=== PATIENT | male | born 1955 | race Caucasian/White ===

== ENCOUNTER 2022-01-21 16:38 | Outpatient (CLI) | payer BC, SELFPAY ==
[2022-01-21 09:13] LABS: Chloride* 101 mmol/L (96-114)
[2022-01-21 09:14] LABS: Albumin* 4.4 g/dL (3.3-5.0); Potassium* 4.5 mmol/L (3.6-5.1); Sodium* 141 mmol/L (135-149)
[2022-01-21 09:17] LABS: Alanine Aminotransferase* 17 U/L (4-50); Alkaline Phosphatase* 83 U/L (40-150); Aspartate Amino Transferase* 22 U/L (12-35); Bilirubin Total* 0.5 mg/dL (0.1-1.5); Blood Urea Nitrogen* 18 mg/dL (7-30); Calcium* 9.3 mg/dL (8.4-10.6); Carbon Dioxide* 35 mmol/L (20-32); Cholesterol* 122 mg/dL (90-199); Creatinine* 0.9 mg/dL (0.5-1.5); Estimated Glomerular Filt Rate 95 ml/min; Glucose* 114 mg/dL (60-115); Total Protein* 6.7 g/dL (6.0-8.3); Triglycerides* 167 mg/dL (40-149)
[2022-01-21 09:18] LABS: HDL Cholesterol* 34 mg/dL (>=40); LDL Cholesterol Calculated 55 mg/dL (<100)
[2022-01-21 09:54] LABS: Microalbumin Creatinine Ratio 20 mg/g (0-30); Microalbumin Urine 3 mg/dL
== END 2022-01-21 16:39 | disposition home or self-care (01) ==
PROVIDERS: PCP Family Medicine; Visit Provider Family Medicine
DX: Z01.818 Encounter for other preprocedural examination (principal); E11.9 Type 2 diabetes mellitus without complications; E78.5 Hyperlipidemia, unspecified; I10 Essential (primary) hypertension
CPT/HCPCS: 80053; 80061; 82043; 82570

== ENCOUNTER 2022-04-03 21:33 | Emergency (ER) | payer BC, SELFPAY ==
[2022-04-03 21:37] VITALS: BP 141/74; PULSE 67; RESP 16; TEMP 36; O2SAT 97; BMI 27.5
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
== END 2022-04-03 22:38 | disposition home or self-care (01) ==
PROVIDERS: Emergency Provider Family Medicine; PCP Family Medicine
DX: S01.01XA Laceration without foreign body of scalp, initial encounter (principal); W22.8XXA Striking against or struck by other objects, initial encounter
CPT/HCPCS: 12001; 99283

== ENCOUNTER 2023-10-14 07:45 | Outpatient (CLI) | payer OTHER, SELFPAY | END 2023-10-14 07:46 | disposition home or self-care (01) | LOC: NFLDREF 10-17 11:36 | PROVIDERS: PCP Family Medicine; Referring Provider Family Medicine; Visit Provider Family Medicine | DX: E11.9 Type 2 diabetes mellitus without complications (principal); E78.5 Hyperlipidemia, unspecified; I10 Essential (primary) hypertension; Z12.5 Encounter for screening for malignant neoplasm of prostate | CPT/HCPCS: 80053; 80061; 82043; 82570; G0103 ==

== ENCOUNTER 2023-10-15 13:48 | Outpatient (CLI) | payer OTHER, SELFPAY | END 2023-10-15 13:49 | disposition home or self-care (01) | LOC: NFLDREF 10-16 09:20 | PROVIDERS: PCP Family Medicine; Referring Provider Family Medicine; Visit Provider Family Medicine | DX: Z00.00 Encounter for general adult medical examination without abnormal findings (principal); E11.9 Type 2 diabetes mellitus without complications; I10 Essential (primary) hypertension | CPT/HCPCS: 82043; 82570 ==

== ENCOUNTER 2023-12-21 16:44 | Emergency (ER) | payer OTHER, SELFPAY ==
[2023-12-21 17:09] VITALS: BP 141/75; PULSE 66; RESP 20; TEMP 36.3; O2SAT 96; BMI 27.9
--- NOTE | 2023-12-21 17:44 | CRLHL7_ITS ---
For Patients: As a result of the Cures Act, medical imaging exams and procedure reports are released immediately into your electronic medical record. You may view this report before your referring provider. If you have questions, please contact your health care provider. INDICATION: Cough TECHNIQUE: Two view chest radiograph COMPARISON: None. FINDINGS: Devices: None. Lung volumes are good. No focal or diffuse opacities. No pleural effusion. No pneumothorax. Heart size is normal. IMPRESSION: Lungs clear. No acute findings. Dictated by Toya Adam MD @ 12/21/2023 6:17:52 PM (Electronically Signed)
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
[2023-12-21 18:09] LABS: PCR FLU A Negative PCR FLU A (Negative); PCR FLU B Negative PCR FLU B (Negative); PCR RSV Negative PCR RSV (Negative); SARS PCR* Negative SARS-CoV-2 (Negative)
== END 2023-12-21 18:55 | disposition home or self-care (01) ==
PROVIDERS: Emergency Provider Family Medicine; PCP Family Medicine
DX: J32.9 Chronic sinusitis, unspecified (principal); R05.9 Cough, unspecified
CPT/HCPCS: 71046; 87631; 99284

== ENCOUNTER 2024-05-22 16:10 | Emergency (ER) | payer OTHER, SELFPAY ==
--- OUTSIDE RECORDS SUMMARY | 2024-05-22 16:13 | XMS_ITS | Continuity of Care Document ---
Author Organization [facility] Address [address] [place] [address] Phone Care Team Providers Care Stitch Wheeler Name Role Phone Denis Villanueva MD Unavailable Unavailable Allergies, Adverse Reactions, Alerts Substance Reaction Status Criticality No Known Allergies Active No Inform ation Medications Medication Instructions Dosage Effective Dates (start - stop) Status Comments MOTRIN IB (unknown strength) Not Available - Active ADVIL (unknown strength) Not Available - Active ROSUVASTATIN CALCIUM (unknown strength) Not Available - Active METOPROLOL TARTRATE (unknown strength) Not Available - Active METFORMIN HCL (unknown strength) Not Available - Active ASPIRIN (unknown strength) Not Available - Active Procedures Procedure Date Office/Outpatient Visit,Est, Mod 2022 Office/Outpatient Visit,Est, Mod 2021 Office/Outpatient Visit,New, [place] 2020 Advance Directives Directive Yes / No Effective Date File Name No Information Encounters Encounter Description Practice Location Reason(s) For Visit Diagnoses Date Provider Providers Copied on Encounter Office/Outpat ient Visit,Est, Mod [facility], [address], [place], [place], [id number], [place] tel:[phone] [facility] [place] Spinal stenosis, cervical region 3 Rich Barrios. [facility], [address] [place] [address], [facility] [address], [place], [place], [id number] , [place]. tel:[phone] Referring Provider: Joey Bedoya, [facility] [address], [address]. tel:[phone] Office/Outpat ient Visit,Est, Mod [facility], [address], [place] [id number], [place] tel:[phone] [facility] Other spondylosis, cervical regionSpinal stenosis, cervical region Sep- 2 Richjacquelyn Barrios. [facility], [address], [address], [place], [place], [id number] , [place]. tel:[phone] Referring Provider: Joey Bedoya, [facility] [address] [place], [address]. tel:[phone] Office/Outpat ient Visit,New, Mod [facility], [address], [place], [id number], [place] tel:[phone] [facility] Other spondylosis, cervical regionSpinal stenosis, cervical regionSprain of ligaments of cervical spine, initial encounter 1 Rich Ruanoothy. [facility], [address] [place] [address], [address], [place], [place], [id number] , [place]. tel:[phone] Referring Provider: Joey Bedoya, [facility] [address] [place], [address]. tel:[phone] Family History Family Member Type Diagnosis Age At Onset No Information Payers Payer name Insurance type Covered libertarian ID Authorjaviera evelyne(s) Medicare MB [id number] Medical [facility] [id number] Social History Type Description Quantity Date Captured Comments Alcohol Use Details Unknown Caffeine Use Details Unknown Tobacco Use Status Occasional cigarette smoker Smoking Status Light tobacco smoker Smoking Tobacco Use Details Cigarette: No Details Available Cigarette: 3 Cigarettes per day Sex Male Vital Signs Date / Time: Height Weight BMI Pulse Rate Blood Pressure Temperature Respiratory Rate Body Surface Area Head Circumference Head Circ. Percentile Wt./Herrera. Percentile BMI percentile Pulse Ox Inhaled Ox 3:12 PM 71.50 in 94.347 kg (208.00 lbs) 28.6 1 kg/m eter (2) Chief Complaint And Reason For Visit No Information Reason For Referral Reason For Referral No Information Plan Of Treatment Date Type Action Status Future Order: Radiology Order Tr ansforaminal Ocrmdtt-Discejdy-Itivjabryihlkm (TRANSCERVNONPART), Ordered on: Ordered History Of Present Illness Encounter Date Complaint History Of Prese nt Illness No Information Functional Status Date Functional Assessmen t No Information Instructions Date Instruction Additional Infor mation No Information Assessments Type Assessment Date assessment Spinal stenosis, cervical region Patient Care Teams Name Effective Dates (start - stop) Status Members No Information
--- OUTSIDE RECORDS SUMMARY | 2024-05-22 16:13 | XMS_ITS | Clinical Summary ---
Author Organization [employer] [facility] [employer] Address [facility] [place] [address] Care Team Providers Care Csw Name Role Phone Pcp, No Primary Care Provider Unavailabl e Allergies No known active allergies Medications aspirin (ECOTRIN) 81 mg enteric coated tablet Take 1 tablet by mouth once daily with a meal. 0 04/19/19 15 Active omeprazole (PRILOSEC) 20 mg Delayed-Release capsule Take 1 capsule by mouth once daily before a meal. 0 03/24/19 16 Active naproxen (NAPROSYN) 500 mg tabletIndications: Osteoarthritis of both knees, unspecified osteoarthritis type TAKE 1 TABLET BY MOUTH TWICE DAILY WITH MEALS 180 tablet 2 06/30/19 16 Active ACCU-CHEK SMARTVIEW TEST STRIP stripIndications:T ype 2 diabetes mellitus without complication (HC) TEST THREE TIMES DAILY DIRECTED 300 Strip 3 10/24/19 16 Active ACCU-CHEK FASTCLIXIndication s:Type 2 diabetes mellitus without complication (HC) TEST THREE TIMES DAILY 300 Each 3 11/18/19 16 Active metFORMIN (GLUCOPHAGE) 1,000 mg tabletIndications: Type 2 diabetes mellitus without complication (HC) TAKE 1 TABLET BY MOUTH TWICE DAILY WITH MEALS 60 tablet 01/21/20 16 Active metoprolol tartrate (LOPRESSOR) 25 mg tabletIndications: Coronary artery disease due to lipid rich plaque Take 1 tablet by mouth 2 times daily. Please make appointment for follow up 60 tablet 06/13/19 17 Active lancets TEST THREE TIMES DAILY 11/18/19 16 Active inhalational spacing deviceIndications: Cough For home use. 1 Device 12/24/19 20 Active rosuvastatin (CRESTOR) 10 mg tablet Take 10 mg by mouth at bedtime. 01/21/20 21 Active methylPREDNISolone (Medrol, Compa,) 4 mg tabletIndications: Sinus congestion Take by mouth as instructed per packaging. 21 Tablet 06/02/19 22 Active Active Problems Problem Noted Date Diagnosed Date Type 2 diabetes mellitus, wi thout long-term current use of insulin 10/09/2018 CAD (coronary artery disease) 04/22/2014 Exertional angina 04/22/2014 Obesity 04/22/2014 Dyslipidemia 04/22/2014 Hypertension 04/22/2014 Family history of premature CAD 04/22/2014 Resolved Problems Problem Noted Date Diagnosed Date Resolved Date Tobacco abuse 04/22/2014 06/15/2014 Immunizations Immunization Administration Dates Next Due Influenza RIV4 (Age 18+ Years) PRESERV FREE 12/02,12/09/2018 Influenza, IIV4 11/16/2019,08/06/2018,01/01/2017 Pneumococcal Poly,23-Valent (Pneumovax) 10/21/19 19 Td (Age >=7 Years) 04/26/1997 Tdap 04/27/2014,01/01/2012 Family History Medical History Relation Name Comments Heart Disease Brother Cancer-breast Mother Relation Name Status Comments Brother Father Mother Social History Tobacco Use Types Packs/Day Years Used Date Smoking Tobacco: Light Smoker Cigarettes 0.5 30 Started: 985; Last attempted to quit: 04/20/2014 Smokeless Tobacco: Never Tobacco Cessation:Ready to Q uit: No; Counseling Given: Yes Alcohol Use Standard Drinks/Week Comments No 0 (1 standard drink = 0.6 oz pur e alcohol) Social Connections Answer Date Recorded Frequency of Communication with Friends and Fami ly Not on file 05/15/2021 Sex and Gender Information Value Date Recorded Sex Assigned at Not on file Legal Sex Male 6:29 AM GO GO DANCER Gender Identity Not on file Sexual Orientation Not on file Obstetrics History Last Filed Vital Signs Vital Sign Reading Time Taken Comments Blood Pressure 136/76 06/01/2021 10:59 AM CDT Pulse 54 06/01/2021 10:57 AM CDT Temperature 36.6 C (97.9 F) 05/15/2021 3:07 PM CDT Respiratory Rate 14 12/24/2019 6:18 PM CDT Oxygen Saturation 98% 06/01/2021 10:57 AM CDT Inhaled Oxygen Concentration - - Weight 93.9 kg (207 lb) 05/15/2021 3:07 PM CDT Height 180.3 cm (5' 11) 05/15/2021 3:07 PM CDT Body Mass Index 28.87 05/15/2021 3:07 PM CDT Plan of Treatment Health Maintenance Due Date Last Done Comments Hepatitis C screening for ag e 18-79 06/06/1975 Colonoscopy through age 75 2002 Zoster (shingles) series for age 50+ (1 of 2) 06/06/2007 Depression screening for age 12+ 03/24/2016 03/24/19 16 RSV vaccine for adults or (1 - Risk 60-74 years 1-dose series) 2017 Pneumococcal series for age 50+ (2 of 2 - PCV) 10/21/2019 10/20/2018 Lipids for age 45-75 01/11/2020 01/10/2015, 04/19/19 15 BMI (ht and wt on same day) for age 18+ 05/15/2022 05/15/2021, 05/03/2015, 04/20/2015, Additional history exists COVID-19 vaccine series ( season) 2023 02/04/2021, 06/16/2020, 05/19/2020 Influenza Vaccine (#1) 2023 , 11/16/2019, 12/09/2018, Additional history exists Tetanus booster 04/27/2024 04/27/2014, 12/03, 04/26/1997 Tdap Completed 04/27/2014, 01/01/2012 Procedures Procedure Name Priority Date/Time Associated Diagnosis Comments LIPID PANEL W REFLEX MEASURED LDL Routine 01/10/2015 7:09 AM GO GO DANCER Coronary artery disease due to lipid rich plaque from Last 3 Months or Most Recently Relevant to Health Maintenance Results * (ABNORMAL) LIPID PANEL W REFLEX MEASURED LDL (01/10/2015 7:09 AM GO GO DANCER) CHOLESTEROL,TOTAL 179 100 - 199 mg/dL 01/10/2015 8:34 AM GO GO DANCER [facility] TRIGLYCERIDES 256(H) <150 mg/dL 01/10/2015 8:34 AM GO GO DANCER [facility] HDL CHOLESTEROL 37(L) >40 mg/dL 01/10/2015 8:34 AM GO GO DANCER [facility] NON-HDL CHOLESTEROL 142 <145 mg/dl 01/10/2015 8:34 AM GO GO DANCER [facility] CHOL/HDL RATIO 4.84(H) <4.50 01/10/2015 8:34 AM GO GO DANCER [facility] LDL CHOLESTEROL 91 <=130 mg/dL 01/10/2015 8:34 AM GO GO DANCER [facility] PATIENT STATUS FASTING 01/10/2015 8:34 AM GO GO DANCER [facility] Blood specimen (specimen) BLOOD SPECIMEN / Unknown Venipuncture / Unknown 01/10/2015 7:09 AM GO GO DANCER 01/10/2015 7:09 AM GO GO DANCER Ronaldo Souza MD CHEMISTRY Final Resu lt [facility] [address] [place] [address], from Last 3 Months or Most Recently Relevant to Health Maintenance Insurance [facility] Advance Directives * Full Code (Latest Code Status on File) Date Activated Date Inactivated Comments 04/21/2014 8:21 AM 04/22/2014 1:19 PM Care Teams Csw Relationship Specialty Start Date End Date Pcp, No . PCP - General 07/24/20
[2024-05-22 16:14] VITALS: BP 170/81; PULSE 65; RESP 16; TEMP -14.1; TEMP 6.6; O2SAT 99; BMI 28.8
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
--- NOTE | 2024-05-22 16:27 | CRLHL7_ITS ---
For Patients: As a result of the Century Cures Act, medical imaging exams and procedure reports are released immediately into your electronic medical record. You may view this report before your referring provider. If you have questions, please contact your health care provider. Indication: : Productive cough TECHNIQUE: Single-view chest. FINDINGS: The lungs are clear. The heart, mediastinum and pulmonary vessels are of normal size. There is no evidence of pleural disease. IMPRESSION: Negative chest. Dictated by Naima Shah MD @ 05/22/2024 4:54:19 PM (Electronically Signed)
--- OUTSIDE RECORDS SUMMARY | 2024-05-22 16:37 | XMS_ITS | Continuity of Care Document ---
Author Organization [facility] Address [address] [place] [address] Phone Care Team Providers Care Medical Appointment Clerk Name Role Phone Denis Villanueva MD Unavailable Unavailable Allergies, Adverse Reactions, Alerts Substance Reaction Status Criticality No Known Allergies Active No Inform ation Medications Medication Instructions Dosage Effective Dates (start - stop) Status Comments MOTRIN IB (unknown strength) Not Available - Active ASPIRIN (unknown strength) Not Available - Active METFORMIN HCL (unknown strength) Not Available - Active METOPROLOL TARTRATE (unknown strength) Not Available - Active ROSUVASTATIN CALCIUM (unknown strength) Not Available - Active ADVIL (unknown strength) Not Available - Active Procedures Procedure Date Office/Outpatient Visit,Est, Mod 2022 Office/Outpatient Visit,Est, Mod 2021 Office/Outpatient Visit,New, Mod 2020 Advance Directives Directive Yes / No Effective Date File Name No Information Encounters Encounter Description Practice Location Reason(s) For Visit Diagnoses Date Provider Providers Copied on Encounter Office/Outpat ient Visit,Est, Mod [facility], [address], [place], [place], [id number], [place] tel:[phone] [facility] [place] Spinal stenosis, cervical region 3 Rich Barrios. [facility], [address] [place] [address], [facility] [address], [place], [place], [id number] , [place]. tel:[phone] Referring Provider: Joey Bedoya, [facility] [address], [address]. tel:[phone] Office/Outpat ient Visit,Est, Mod [facility], [address], [place], [id number], [place] tel:[phone] [facility] Other spondylosis, cervical regionSpinal stenosis, cervical region Sep- 2 Richjacquelyn Barrios. [facility] [place], [address], [address], [place], [place], [id number] , [place]. tel:[phone] Referring Provider: Joey Bedoya, [facility] [address] [place], [address]. tel:[phone] Office/Outpat ient Visit,New, Mod [facility], [address], [place], [place], [id number], [place] tel:[phone] [facility] Other spondylosis, cervical regionSpinal stenosis, cervical regionSprain of ligaments of cervical spine, initial encounter 1 Rich Ruanoothy. [facility], [address] [place] [address], [address], [place], [place], [id number] , [place]. tel:[phone] Referring Provider: Joey Bedoya, [facility] [address] [place], [address]. tel:[phone] Family History Family Member Type Diagnosis Age At Onset No Information Payers Payer name Insurance type Covered democrat ID Authorjaviera evelyne(s) Medicare MB [id number] Medical [facility] [id number] Social History Type Description Quantity Date Captured [...] Status Future Order: Radiology Order Tr ansforaminal [id number] (TRANSCERVNONPART), Ordered on: Ordered History Of Present Illness Encounter Date Complaint History Of Prese nt Illness No Information Functional Status Date Functional Assessmen t No Information Instructions Date Instruction Additional Infor mation No Information Assessments Type Assessment Date assessment Spinal stenosis, cervical region Patient Care Teams Name Effective Dates (start - stop) Status Members No Information
--- OUTSIDE RECORDS SUMMARY | 2024-05-22 16:37 | XMS_ITS | Clinical Summary ---
Author Organization [employer] [facility] [employer] [facility] Address [facility] [place] [address] Care Team Providers Care Flat Spring Assembler Name Role Phone Pcp, No Primary Care [...] on file Legal Sex Male 6:29 AM U.S. REPRESENTATIVE Gender Identity Not on file Sexual Orientation [...] REFLEX MEASURED LDL Routine 01/10/2015 7:09 AM U.S. REPRESENTATIVE Coronary artery disease due to lipid rich plaque from Last 3 Months or Most Recently Relevant to Health Maintenance Results * (ABNORMAL) LIPID PANEL W REFLEX MEASURED LDL (01/10/2015 7:09 AM U.S. REPRESENTATIVE) CHOLESTEROL,TOTAL 179 100 - 199 mg/dL 01/10/2015 8:34 AM U.S. REPRESENTATIVE [facility] TRIGLYCERIDES 256(H) <150 mg/dL 01/10/2015 8:34 AM U.S. REPRESENTATIVE [facility] HDL CHOLESTEROL 37(L) >40 mg/dL 01/10/2015 8:34 AM U.S. REPRESENTATIVE [facility] NON-HDL CHOLESTEROL 142 <145 mg/dl 01/10/2015 8:34 AM U.S. REPRESENTATIVE [facility] CHOL/HDL RATIO 4.84(H) <4.50 01/10/2015 8:34 AM U.S. REPRESENTATIVE [facility] LDL CHOLESTEROL 91 <=130 mg/dL 01/10/2015 8:34 AM U.S. REPRESENTATIVE [facility] PATIENT STATUS FASTING 01/10/2015 8:34 AM U.S. REPRESENTATIVE [facility] Blood specimen (specimen) BLOOD SPECIMEN / Unknown Venipuncture / Unknown 01/10/2015 7:09 AM U.S. REPRESENTATIVE 01/10/2015 7:09 AM U.S. REPRESENTATIVE Ronaldo Souza MD CHEMISTRY Final Resu lt [facility] [address] [place] [address], from Last 3 Months or Most Recently Relevant to Health Maintenance Insurance [facility] Advance Directives * Full Code (Latest Code Status on File) Date Activated Date Inactivated Comments 04/21/2014 8:21 AM 04/22/2014 1:19 PM Care Teams Flat Spring Assembler Relationship Specialty Start Date End Date Pcp, No . PCP - General 07/24/20
--- NOTE | 2024-05-22 16:47 | ED.NURSE ---
Irrigated right ear, pt tolerated well - pt said he did feel dizzy towards the end. Small amounts of wax observed after irrigation. MD aware.
[2024-05-22 17:36] LABS: PCR FLU A Negative PCR FLU A (Negative); PCR FLU B Negative PCR FLU B (Negative); PCR RSV Negative PCR RSV (Negative); SARS PCR* Negative SARS-CoV-2 (Negative)
== END 2024-05-22 17:51 | disposition home or self-care (01) ==
PROVIDERS: Emergency Provider Family Medicine; PCP Family Medicine
DX: H66.93 Otitis media, unspecified, bilateral (principal); J06.9 Acute upper respiratory infection, unspecified
CPT/HCPCS: 71045; 87631; 99283; 99284

== ENCOUNTER 2024-05-29 16:53 | Emergency (ER) | payer OTHER, SELFPAY ==
--- OUTSIDE RECORDS SUMMARY | 2024-05-29 16:56 | XMS_ITS | Clinical Summary ---
Author Organization [employer] [facility] [employer] Address [address] [place] [address] Care Team Providers Care Optometrist President/Practice Owner Name Role Phone Pcp, No Primary Care [...] on file Legal Sex Male 6:29 AM SAWMILL TALLY CLERK Gender Identity Not on file Sexual Orientation [...] REFLEX MEASURED LDL Routine 01/10/2015 7:09 AM SAWMILL TALLY CLERK Coronary artery disease due to lipid rich plaque from Last 3 Months or Most Recently Relevant to Health Maintenance Results * (ABNORMAL) LIPID PANEL W REFLEX MEASURED LDL (01/10/2015 7:09 AM SAWMILL TALLY CLERK) CHOLESTEROL,TOTAL 179 100 - 199 mg/dL 01/10/2015 8:34 AM SAWMILL TALLY CLERK [facility] TRIGLYCERIDES 256(H) <150 mg/dL 01/10/2015 8:34 AM SAWMILL TALLY CLERK [facility] HDL CHOLESTEROL 37(L) >40 mg/dL 01/10/2015 8:34 AM SAWMILL TALLY CLERK [facility] NON-HDL CHOLESTEROL 142 <145 mg/dl 01/10/2015 8:34 AM SAWMILL TALLY CLERK [facility] CHOL/HDL RATIO 4.84(H) <4.50 01/10/2015 8:34 AM SAWMILL TALLY CLERK [facility] LDL CHOLESTEROL 91 <=130 mg/dL 01/10/2015 8:34 AM SAWMILL TALLY CLERK [facility] PATIENT STATUS FASTING 01/10/2015 8:34 AM SAWMILL TALLY CLERK [facility] Blood specimen (specimen) BLOOD SPECIMEN / Unknown Venipuncture / Unknown 01/10/2015 7:09 AM SAWMILL TALLY CLERK 01/10/2015 7:09 AM SAWMILL TALLY CLERK Ronaldo Souza MD CHEMISTRY Final Resu lt [facility] [address] [place] [address], from Last 3 Months or Most Recently Relevant to Health Maintenance Insurance [facility] Advance Directives * Full Code (Latest Code Status on File) Date Activated Date Inactivated Comments 04/21/2014 8:21 AM 04/22/2014 1:19 PM Care Teams Optometrist President/Practice Owner Relationship Specialty Start Date End Date Pcp, No . PCP - General 07/24/20
[2024-05-29 17:10] VITALS: BP 151/74; PULSE 63; RESP 16; TEMP 36.1; O2SAT 96
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
--- OUTSIDE RECORDS SUMMARY | 2024-05-29 17:35 | XMS_ITS | Clinical Summary ---
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 Gender Identity Not on file Sexual [...] REFLEX MEASURED LDL Routine 01/10/2015 7:09 AM SENIOR COURTROOM CLERK Coronary artery disease due to lipid rich plaque from Last 3 Months or Most Recently Relevant to Health Maintenance Results * (ABNORMAL) LIPID PANEL W REFLEX MEASURED LDL (01/10/2015 7:09 AM SENIOR COURTROOM CLERK) CHOLESTEROL,TOTAL 179 100 - 199 mg/dL 01/10/2015 8:34 AM SENIOR COURTROOM CLERK [facility] TRIGLYCERIDES 256(H) <150 mg/dL 01/10/2015 8:34 AM SENIOR COURTROOM CLERK [facility] HDL CHOLESTEROL 37(L) >40 mg/dL 01/10/2015 8:34 AM SENIOR COURTROOM CLERK [facility] NON-HDL CHOLESTEROL 142 <145 mg/dl 01/10/2015 8:34 AM SENIOR COURTROOM CLERK [facility] CHOL/HDL RATIO 4.84(H) <4.50 01/10/2015 8:34 AM SENIOR COURTROOM CLERK [facility] LDL CHOLESTEROL 91 <=130 mg/dL 01/10/2015 8:34 AM SENIOR COURTROOM CLERK [facility] PATIENT STATUS FASTING 01/10/2015 8:34 AM SENIOR COURTROOM CLERK [facility] Blood specimen (specimen) BLOOD SPECIMEN / Unknown Venipuncture / Unknown 01/10/2015 7:09 AM SENIOR COURTROOM CLERK 01/10/2015 7:09 AM SENIOR COURTROOM CLERK Ronaldo Souza MD CHEMISTRY Final Resu lt [facility] [address] [place] [address], from Last 3 Months or Most Recently Relevant to Health Maintenance Insurance [facility] Advance Directives * Full Code (Latest Code Status on File) Date Activated Date Inactivated Comments 04/21/2014 8:21 AM 04/22/2014 1:19 PM Care Teams Communication Technician Relationship Specialty Start Date End Date Pcp, No . PCP - General 07/24/20
[2024-05-29] MEDS: predniSONE 10 MG TABLET 50 MG PO (17:39)
[2024-05-29] MEDS: cefTRIAXone 1 GM VIAL IM (17:40)
[2024-05-29] MEDS: LIDOCAINE 1% 5 ml (pf) 5 ML VIAL 2.1 ML IM (17:40)
== END 2024-05-29 17:41 | disposition home or self-care (01) ==
LOC: ED 17:33
PROVIDERS: Emergency Provider Family Medicine; PCP Family Medicine
DX: H66.93 Otitis media, unspecified, bilateral (principal)
CPT/HCPCS: 96372; 99283; 99284; J0696; J7512

== ENCOUNTER 2024-06-06 17:29 | Emergency (ER) | payer MEDICARE, SELFPAY ==
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
[2024-06-06 17:35] VITALS: PULSE 66; RESP 18; TEMP 36.4; O2SAT 97; BMI 27.8
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
--- OUTSIDE RECORDS SUMMARY | 2024-06-06 18:05 | XMS_ITS | Clinical Summary ---
Author Organization [facility] Address [address] [place] [address] Care Team Providers Care Senior Test Analyst Name Role Phone Pcp, No Primary Care [...] CDT - 06/04/2024 1:00 PM CDT Emergency [facility] Emergency Department [address] [place] [address] Eric Otoole MD Syncope and collapse (Primary [...] on file Legal Sex Male 6:29 AM [employer] Gender Identity Not on file Sexual Orientation [...] REFLEX MEASURED LDL Routine 01/10/2015 7:09 AM [employer] Coronary artery disease due to lipid rich [...] 11.0 thou/cu mm 06/04/2024 11:05 AM CDT [facility] RED BLOOD COUNT 4.74 4.30 - 5.90 mil/cu mm 06/04/2024 11:05 AM T [facility] HEMOGLOBIN 14.1 13.5 - 17.5 g/dL 06/04/2024 11:05 AM [facility] HEMATOCRIT 42.6 37.0 - 53.0 % 06/04/2024 11:05 AM T [facility] MCV 90 80 - 100 fL 06/04/2024 11:05 AM T [facility] MCH 29.7 26.0 - 34.0 pg 06/04/2024 11:05 AM T [facility] MCHC 33.1 32.0 - 36.0 g/dL 06/04/2024 11:05 AM [facility] RDW 12.1 11.5 - 15.5 % 06/04/2024 11:05 AM [facility] PLATELET COUNT 348 140 - 440 thou/cu mm 06/04/2024 11:05 AM [facility] MPV 8.9 6.5 - 11.0 fL 06/04/2024 11:05 AM [facility] NRBC 0.0 % 06/04/2024 11:05 AM [facility] ABS NRBC 0.0 thou /cu mm 06/04/2024 11:05 AM [facility] Blood BLOOD SPECIMEN / Unknown Non-Lab Venipuncture / Unknown 06/04/2024 10:51 AM CDT 06/04/2024 10:57 AM CDT us Eric Otoole MD HEMATOLOGY Shaunna l Result [facility] [address] [place] [address], [place] * (ABNORMAL) BASIC METABOLIC PANEL (06/04/2024 10:51 AM CDT) SODIUM 137 136 - 145 mmol/L 06/04/2024 11:28 AM [facility] POTASSIUM 4.4 3.5 - 5.1 mmol/L 06/04/2024 11:28 AM [facility] CHLORIDE 99 98 - 107 mmol/L 06/04/2024 11:28 AM [facility] CO2,TOTAL 26 22 - 29 mmol/L 06/04/2024 11:28 AM [facility] ANION GAP 12 5 - 18 06/04/2024 11:28 AM [facility] GLUCOSE 179(H) 70 - 99 mg/dL 06/04/2024 11:28 AM [facility] CALCIUM 9.9 8.8 - 10.4 mg/dL 06/04/2024 11:28 AM [facility] Comment: Reference ranges for this test were updated on 01/06/2024 to reflect our healthy population more accurately. Reference range changes are not retroactively applied to results, but previous results using the same methodology can be interpreted in the context of the new reference range. BUN 23 8 - 23 mg/dL 06/04/2024 11:28 AM [facility] CREATININE 1.01 0.70 - 1.20 mg/dL 06/04/2024 11:28 AM [facility] BUN/CREAT RATIO 23(H) 10 - 20 11:28 AM [facility] eGFR 82(L) >90 mL/min/1. 73m2 06/04/2024 11:28 AM [facility] Comment:As of 2021, eG FR [...] CHEMISTRY Shaunna l Result Performing Organization Address [facility] Co de Phone Number [facility] [address] [place] [address], [place] * EKG 12 LEAD (06/04/2024 10:44 AM CDT) Interpretation Sinus bradycardia Incomplete left bundle branch block Minimal voltage criteria for LVH, may be normal variant ( [place] product ) Nonspecific T wave abnormality -aVL, new compared to 2.20.15 Abnormal ECG no significant change from 2.20.15 [facility] Ventricular Rate 53 BPM [facility] Atrial Rate 53 BPM [facility] NOW P-R Interval 160 ms [facility] NOW QRS Duration 110 ms [facility] NOW QT 434 ms [facility] NOW QTc 407 ms [facility] NOW P [place] 31 degrees [facility]OND NOW R [place] -5 degrees BEY[facility] NOW T [place] 57 degrees BEYOND NOW 06/04/2024 10:4 4 AM CDT 2024 3:42 PM CDT Eric Otoole MD EKG ORD Shaunna l Result Performing Organization Address [facility] de Phone Number [facility] [place], [place] * (ABNORMAL) LIPID PANEL W REFLEX MEASURED LDL (01/10/2015 7:09 AM [facility] [employer]) CHOLESTEROL,TOTAL 179 100 - 199 mg/dL 01/10/2015 8:34 AM [facility] TRIGLYCERIDES 256(H) <150 mg/dL 01/10/2015 8:34 AM [facility] HDL CHOLESTEROL 37(L) >40 mg/dL 01/10/2015 8:34 AM [facility] [employer] [employer] NON-HDL CHOLESTEROL 142 <145 mg/dl 01/10/2015 8:34 AM [facility] CHOL/HDL RATIO 4.84(H) <4.50 01/10/2015 8:34 AM [facility] LDL CHOLESTEROL 91 <=130 mg/dL 01/10/2015 8:34 AM [facility] PATIENT STATUS FASTING 01/10/2015 8:34 AM [facility] Blood specimen (specimen) BLOOD SPECIMEN / Unknown Venipuncture / Unknown 01/10/2015 7:09 AM [facility] [employer] [employer] 01/10/2015 7:09 AM [facility] [employer] Ronaldo Souza MD CHEMISTRY Final Resu lt [facility] [address] [place] [address], from Last 3 Months or Most Recently Relevant to Health Maintenance Insurance MEDICARE PART A HB ONLY MEDICARE PART B HB ONLY Advance Directives * Full Code (Latest Code Status on File) Date Activated Date Inactivated Comments 04/21/2014 8:21 AM 04/22/2014 1:19 PM Care Teams Senior Test Analyst Relationship Specialty Start Date End Date Pcp, No . PCP - General 07/24/20
== END 2024-06-06 18:10 | disposition home or self-care (01) ==
PROVIDERS: Emergency Provider Family Medicine; PCP Family Medicine
DX: H66.91 Otitis media, unspecified, right ear (principal)
CPT/HCPCS: 99283; 99284